=== PATIENT | male | born 1995 | race African-American/Black ===

== ENCOUNTER 2018-08-06 13:16 | Emergency (ER) | payer MEDICARE ==
[~2018-08-06] VITALS: Ht 182.9 cm; Wt 100.2 kg
[2018-08-06 13:48] VITALS: BP 136/60
[2018-08-06] MEDS: HYDROcodone/APAP 5/325MG 1 TAB TABLET PO ONE (14:10)
[2018-08-06] MEDS ORDERED: HYDR-971 PO (14:12)
[2018-08-06] MEDS ORDERED: PENI500T PO (14:12)
--- NOTE | 2018-08-06 14:12 | PHYS DOC ---
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 Past Surgical History: Other Additional Past Surgical Histo: eye Alcohol Use: None Drug Use: None Adult General Chief Complaint Chief Complaint: OTHER COMPLAINTS [facility] HPI Patient is a 23 year old male who presents with right upper back molar tooth pain times over 2 months. Patient states that he was at [facility] and they put him on amoxicillin for the last 2 months and told him to keep taking it until the pain was gone. Patient states that he was given 10 oxycodone to take and he took it last 2 days ago but has no more. Patient rates pain a 7 out of 10. Patient states the tooth doesn't hurt as much anymore unless he eats but now on the roof on the mouth to the side of the infected tooth is a raised tender not. Patient states that that not has been there for the last week. Patient states that it hurts especially when he eats. Patient denies any current headaches, nausea, vomiting, chills, fever. Patient states that he has a dentist appointment for a tooth removal on August 24. She states he has no known drug allergies, does not smoke, takes no drugs, does not drink. Patient has history of asthma and seizures which he takes no medications for daily. Review of Systems Review of Systems Constitutional: Denies fever or chills [] Eyes: Denies change in visual acuity, redness, or eye pain [] HENT: Denies nasal congestion or sore throat. Right upper back molar pain x 2 months. Roof of mouth lump adjacent to effected tooth that is tender x 1 week. [ ] Respiratory: Denies cough or shortness of breath [] Cardiovascular: No additional information not addressed in HPI [] GI: Denies abdominal pain, nausea, vomiting, bloody stools or diarrhea [] : Denies dysuria or hematuria [] Musculoskeletal: Denies back pain or joint pain [] Integument: Denies rash or skin lesions. [] Neurologic: Denies headache, focal weakness or sensory changes [] Endocrine: Denies polyuria or polydipsia [] All other systems were reviewed and found to be within normal limits, except as documented in this note. Current Medications Current Medications Current Medications Medications (Trade) Dose Ordered Sig/Addie Start Time Stop Time Status Last Admin Dose Admin Acetaminophen/ Hydrocodone Bitart (Lortab 5/325) 1 tab 1X ONCE 08/06/18 14:00 08/06/18 14:01 DC 08/06/18 14:10 1 TAB Bupivacaine HCl/ Epinephrine Bitart (Sensorcain-Mpf Epi 0.5%-[id number]) 30 ml 1X ONCE 08/06/18 14:30 08/06/18 14:34 DC 08/06/18 15:50 30 ML Clindamycin HCl (Cleocin) 450 mg 1X ONCE 08/06/18 14:30 08/06/18 14:31 DC 08/06/18 14:36 450 MG Dexamethasone (Decadron) 8 mg 1X ONCE 08/06/18 14:30 08/06/18 14:31 DC 08/06/18 14:36 8 MG Allergies Allergies Allergies Coded Allergies Type Severity Reaction Last Updated Verified No Known Drug Allergies 03/15/14 No Physical Exam Physical Exam Constitutional: Well developed, well nourished, no acute distress, non-toxic appearance. [] HENT: Normocephalic, atraumatic, bilateral external ears normal, oropharynx moist, no oral exudates, nose normal.Right upper back molar dental caries. Roof of mouth lump adjacent to effected tooth that is tender, pink, and nondraining. Eyes: PERRLA, EOMI, conjunctiva normal, no discharge. [] Neck: Normal range of motion, no tenderness, supple, no stridor. [] Cardiovascular:Heart rate regular rhythm, no murmur [] Lungs & Thorax: Bilateral breath sounds clear to auscultation [] Abdomen: Bowel sounds normal, soft, no tenderness, no masses, no pulsatile masses. [] Skin: Warm, dry, no erythema, no rash. [] Back: No tenderness, no CVA tenderness. [] Extremities: No tenderness, no cyanosis, no clubbing, ROM intact, no edema. [] Neurologic: Alert and oriented X 3, normal motor function, normal sensory function, no focal deficits noted. [] Psychologic: Affect normal, judgement normal, mood normal. [] PE by Dr. Bailey: Constitutional: no acute distress, non-toxic appearance. [] HENT: Right maxillary 1st molar significant dental josefina noted. Nondraining hard palate fluctuance noted which is tender to palpation. Concern for abscess. Current Patient Data Vital Signs Vital Signs Date Time Temp Pulse Resp B/P (MAP) Pulse Ox O2 Delivery O2 Flow Rate FiO2 08/06/18 14:10 18 97 08/06/18 13:48 97.9 82 136/60 (85) Room Air 97.9 EKG EKG [] Radiology/Procedures Radiology/Procedures [] Course & Med Decision Making Course & Med Decision Making Patient is a 23 year old male who presents with right upper back molar tooth pain times over 2 months. Patient states that he was at and they put him on amoxicillin for the last 2 months and told him to keep taking it until the pain was gone. Patient states that he was given 10 oxycodone to take and he took it last 2 days ago but has no more. Patient rates pain a 7 out of 10. Patient states the tooth doesn't hurt as much anymore unless he eats but now on the roof on the mouth to the side of the infected tooth is a raised tender not. Patient states that that not has been there for the last week. Patient states that it hurts especially when he eats. Patient denies any current headaches, nausea, vomiting, chills, fever. Patient states that he has a dentist appointment for a tooth removal on August 24. Patient states he has no known drug allergies, does not smoke, takes no drugs, does not drink. Patient has history of asthma and seizures which he takes no medications for daily. Patient' s lungs are clear to auscultation. Patient's heart rate is regular and without murmur. Patient is alert and oriented. Patient is ambulatory. Patient has no visual abnormalities, numbness, tingling. Patient denies any sinus congestion or recent illness. Examination patient does have a raised lump adjacent to the infected tooth. It is not draining. It is pink in the same color as the rest of the mucous membrane on the roof his mouth. Patient is afebrile. Patient states it is tender when I palpated. It is soft. I will write for some pain medicine for the patient and his antibiotic to Clindamycin. Patient will have to stop taking the amoxicillin that he had been on for the last 2 months. I have consulted with Dr. Bailey. Patient received a dental block with Bupivacaine with epi by Dr Bailey. Patient tolerated well. The abscessed area was numbed by Dr Bailey and the abscess was then manipulated but did not drain any fluid with needle stick puncture. The patient is given a dose of Clindamycin and [place] in the ED. Patient to keep his dental appointment and to call to see if he can get in sooner. [] Dragon Disclaimer Dragon Disclaimer This electronic medical record was generated, in whole or in part, using a voice recognition dictation system. Departure Departure Impression: Primary Impression: Dental abscess Disposition: HOME, SELF-CARE Condition: STABLE Referrals: NO PCP (PCP) Patient Instructions: Dental Abscess Additional Instructions: Keep current dental appointment. Stop taking Amoxicillin and begin Penicillin. Take Ibuprofen and pain medication as prescribed. Scripts Chlorhexidine Gluconate (PERIDEX) 15 Ml Mouthwash 15 ML PO BID for 10 Days, #946 ML Prov: CARLOS MCMULLEN APRN 08/06/18 Clindamycin Hcl (CLINDAMYCIN HCL) 300 Mg Capsule 450 MG PO TID for 10 Days, #45 CAP Prov: CARLOS MCMULLEN APRN 08/06/18 Hydrocodone/Apap 5-325 (NORCO 5-325 TABLET) 1 Each Tablet 1 TAB PO PRN Q6HRS PRN for PAIN, #8 TAB 0 Refills Prov: CARLOS MCMULLEN APRN 08/06/18 Additional Procedures Progress Dental Block and Needle Aspiration of dental abscess: Time out completed. Verbal consent obtained. Hand hygiene utilized. [place] Alveolar block performed with 4ml of Bupivicaine 0.5% with epi via 25g hypodermic needle. Interval improvement of pain. Needle decompression with 25 gauge hypodermic needle also performed to fluctuant area to hard palate near infected tooth. Serosanginous discharge appreciated. Patient tolerated procedure well and without difficulty. Attending Signature Attending Signature I have personally interviewed and examined the patient. All charts, labs, and imaging studies were reviewed. I agree with the PA/INTERNET MERCHANT's findings, exam, and plan. CARLOS MCMULLEN APRN Aug 06, 2018 14:12 VINCE BAILEY DO Aug 08, 2018 12:20
[2018-08-06] MEDS ORDERED: CHLO15MO2 PO (14:30)
[2018-08-06] MEDS ORDERED: CLIN300C8 PO (14:30)
[2018-08-06] MEDS: CLINDAMYCIN HCL 150 MG CAPSULE. PO ONE (14:36)
[2018-08-06] MEDS: DEXAMETHASONE 4 MG TABLET PO ONE (14:36)
[2018-08-06] MEDS: BUPIVAC MPF-EPI 0.5%-1:200000 30 ML VIAL. INJ ONE (15:50)
== END 2018-08-06 16:30 | disposition home or self-care (01) ==
LOC: ER 13:16
DX: K04.7 Periapical abscess without sinus (principal); J45.909 Unspecified asthma, uncomplicated
CPT/HCPCS: 64400; 99284; J3490; J8540

== ENCOUNTER 2018-11-20 14:09 | Emergency (ER) | payer MEDICARE, MEDICAID ==
[~2018-11-20] VITALS: Ht 182.9 cm; Wt 100.2 kg
[~2018-11-20 14:09] MED LIST: CHLO15MO2 PO; CLIN300C8 PO; HYDR-3164 PO; PENI500T PO
[2018-11-20 14:10] VITALS: BP 134/61
[2018-11-20] MEDS ORDERED: KETOROLAC 60 MG/2 ML VIAL. IM ONE (14:30)
[2018-11-20] MEDS ORDERED: CYCLOBENZAPRINE 10 MG TABLET. PO ONE (14:30)
[2018-11-20] MEDS ORDERED: CYCL5TAB PO (14:44)
[2018-11-20] MEDS ORDERED: IBUP-1060 PO (14:44)
--- NOTE | 2018-11-20 14:45 | PHYS DOC ---
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 Past Surgical History: Other Additional Past Surgical Histo: eye Alcohol Use: None Drug Use: None Adult General Chief Complaint Chief Complaint: BACK PAIN OR INJURY HPI HPI Patient is a 23 year old AA male who presents to the ER with complaints of left mid and right lower back pain for the last month. Pt denies any recent injury or illness. States that he is on his feet a lot at work. He has been taking OTC pain relievers with no reduction in symptoms. Pt denies any saddle anesthesia, numbness/tingling/weakness of lower extremities, or loss of bowel/ bladder control. Currently, his pain is a 10/10 on the pain scale. Pt also requesting a work excuse Review of Systems Review of Systems Constitutional: Denies fever or chills [] Eyes: Denies change in visual acuity, redness, or eye pain [] ENT: Denies nasal congestion or sore throat [] Respiratory: Denies cough or shortness of breath [] Cardiovascular: No additional information not addressed in HPI [] GI: Denies abdominal pain, nausea, vomiting, or diarrhea [] : Denies dysuria or hematuria [] Musculoskeletal: See HPI Integument: Denies rash or skin lesions [] Neurologic: Denies headache, focal weakness or sensory changes [] All other systems were reviewed and found to be within normal limits, except as documented in this note. Current Medications Current Medications Current Medications Medications (Trade) Dose Ordered Sig/[facility] Start Time Stop Time Status Last Admin Dose Admin Cyclobenzaprine HCl (Flexeril) 10 mg 1X ONCE 11/20/18 14:30 11/20/18 14:31 DC 11/20/18 14:33 10 MG Ketorolac Tromethamine (Toradol Im) 30 mg 1X ONCE 11/20/18 14:30 11/20/18 14:31 DC 11/20/18 14:33 30 MG Allergies Allergies Allergies Coded Allergies Type Severity Reaction Last Updated Verified No Known Drug Allergies 11/20/18 No Physical Exam Physical Exam Constitutional: Well developed, well nourished, no acute distress, non-toxic appearance, obese. [] HENT: Normocephalic, atraumatic, bilateral external ears normal, oropharynx moist, no oral exudates, nose normal. [] Eyes: conjunctiva normal, no discharge. [] Skin: Warm, dry, no erythema, no rash. [] Back: No bony tenderness, no CVA tenderness; right lumbar paraspinal tenderness to palpation, left thoracic paraspinal tenderness to palpation. Extremities: No cyanosis, no clubbing, ROM intact, no edema. [] Neurologic: Alert and oriented X 3, normal motor function, normal sensory function, no focal deficits noted. [] Psychologic: Affect normal, judgement normal, mood normal. [] Current Patient Data Vital Signs Vital Signs Date Time Temp Pulse Resp B/P (MAP) Pulse Ox O2 Delivery O2 Flow Rate FiO2 11/20/18 14:10 97.5 87 18 134/61 (85) 96 Room Air 97.5 EKG EKG [] Radiology/Procedures Radiology/Procedures [] Course & Med Decision Making Course & Med Decision Making Pertinent Labs and Imaging studies reviewed. (See chart for details) [] Dragon Disclaimer Dragon Disclaimer This electronic medical record was generated, in whole or in part, using a voice recognition dictation system. Departure Departure Impression: Primary Impression: Lumbar strain Additional Impression: Strain of thoracic region Disposition: HOME, SELF-CARE Condition: STABLE Referrals: NO PCP (PCP) Patient Instructions: Back Pain, Adult, [id number] Additional Instructions: Fill prescriptions and use as directed. Follow up with your primary care doctor if symptoms persist, return to the ER if symptoms worsen. Scripts Cyclobenzaprine Hcl (CYCLOBENZAPRINE HCL) 5 Mg Tablet 5 MG PO PRN TID PRN for muscle spasm, #15 TAB Prov: ARMEN SUBRAMANIAN DO 11/20/18 Ibuprofen (IBUPROFEN) 800 Mg Tablet 800 MG PO PRN TID PRN for PAIN, #30 TAB take with food or milk to avoid upsetting stomach Prov: ARMEN SUBRAMANIAN DO 11/20/18 Problem Qualifiers Primary Impression: Lumbar strain Encounter type: initial encounter Qualified Codes: S39.012A - Strain of muscle, fascia and tendon of lower back, initial encounter Additional Impression: Strain of thoracic region Encounter type: initial encounter Qualified Codes: S29.019A - Strain of muscle and tendon of unspecified wall of thorax, initial encounter PHIL ZEE APRN Nov 20, 2018 14:45
== END 2018-11-20 14:47 | disposition home or self-care (01) ==
LOC: ER 14:09
DX: S39.012A Strain of muscle, fascia and tendon of lower back, initial encounter (principal); S29.019A Strain of muscle and tendon of unspecified wall of thorax, initial encounter; J45.909 Unspecified asthma, uncomplicated; X50.1XXA Overexertion from prolonged static or awkward postures, initial encounter; Y93.89 Activity, other specified; Y92.69 Other specified industrial and construction area as the place of occurrence of the external cause; Y99.0 Civilian activity done for income or pay
CPT/HCPCS: 96372; 99283; J1885

== ENCOUNTER 2019-01-05 14:59 | Emergency (ER) | payer MEDICARE ==
[~2019-01-05] VITALS: Ht 182.9 cm; Wt 108.4 kg
[~2019-01-05 14:59] MED LIST changes: +CYCL5TAB PO; +IBUP-1060 PO
[2019-01-05 15:29] VITALS: BP 151/70
[2019-01-05] MEDS ORDERED: AMOXICILLIN 250 MG CAPSULE. PO ONE (15:30)
[2019-01-05] MEDS ORDERED: DEXAMETHASONE SOD PHOS 20 MG/5 ML VIAL. IM ONE (15:30)
--- NOTE | 2019-01-05 15:47 | PHYS DOC ---
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 Past Surgical History: Other Additional Past Surgical Histo: eye Alcohol Use: None Drug Use: None Adult General Chief Complaint Chief Complaint: SORE THROAT HPI HPI Patient is a 23 year old male with history of asthma, seizures, who presents to the ED complaining of some throat swelling and soreness that began this morning. Patient denies any fever, coughing, congestion. Review of Systems Review of Systems Constitutional: Denies fever or chills [] Eyes: Denies change in visual acuity, redness, or eye pain [] HENT: Reports sore throat and throat swelling. Denies nasal congestion Respiratory: Denies cough or shortness of breath [] Cardiovascular: No additional information not addressed in HPI [] GI: Denies abdominal pain, nausea, vomiting, bloody stools or diarrhea [] : Denies dysuria or hematuria [] Musculoskeletal: Denies back pain or joint pain [] Integument: Denies rash or skin lesions [] Neurologic: Denies headache, focal weakness or sensory changes [] All other systems were reviewed and found to be within normal limits, except as documented in this note. Current Medications Current Medications Current Medications Medications (Trade) Dose Ordered Sig/Addie Start Time Stop Time Status Last Admin Dose Admin Amoxicillin (Amoxil) 1,000 mg 1X ONCE 01/05/19 15:30 01/05/19 15:31 DC 01/05/19 15:51 1,000 MG Dexamethasone Sodium Phosphate (Decadron) 10 mg 1X ONCE 01/05/19 15:30 01/05/19 15:31 DC 01/05/19 15:51 10 MG Allergies Allergies Allergies Coded Allergies Type Severity Reaction Last Updated Verified No Known Drug Allergies 11/20/18 No Physical Exam Physical Exam Constitutional: Well developed, well nourished, no acute distress, non-toxic appearance. [] HENT: Normocephalic, atraumatic, bilateral external ears normal, oropharynx moist, no oral exudates, nose normal. [] Airway is open, no uvular has mild swelling, mild erythema to posterior pharynx no exudate Eyes: PERRLA, EOMI, conjunctiva normal, no discharge. [] Neck: Normal range of motion, no tenderness, supple, no stridor. [] Cardiovascular:Heart rate regular rhythm, no murmur [] Lungs & Thorax: Bilateral breath sounds clear to auscultation [] Abdomen: Bowel sounds normal, soft, no tenderness, no masses, no pulsatile masses. [] Skin: Warm, dry, no erythema, no rash. [] Back: No tenderness, no CVA tenderness. [] Extremities: No tenderness, no cyanosis, no clubbing, ROM intact, no edema. [] Neurologic: Alert and oriented X 3, normal motor function, normal sensory function, no focal deficits noted. [] Psychologic: Affect normal, judgement normal, mood normal. [] Current Patient Data Vital Signs Vital Signs Date Time Temp Pulse Resp B/P (MAP) Pulse Ox O2 Delivery O2 Flow Rate FiO2 01/05/19 15:29 97.7 75 18 151/70 (97) 97 Room Air 97.7 EKG EKG [] Radiology/Procedures Radiology/Procedures [] Course & Med Decision Making Course & Med Decision Making Pertinent Labs and Imaging studies reviewed. (See chart for details) This is a 23-year-old male patient who presented to the ED today complaining of sore throat and throat swelling, on physical exam his uvular was mildly swollen , airway still open, there is erythema to pharynx. Patient was given Solu- Medrol injection in the ED. Given amoxicillin in the ED. Discharged with amoxicillin for 10 days. Saltwater gargles recommended. Prescription for prednisone for 5 more days also provided. Follow-up with PCP or ENT in one to 2 weeks. Instructed to return to the ED at any point symptoms worsen. Dragon Disclaimer Dragon Disclaimer This electronic medical record was generated, in whole or in part, using a voice recognition dictation system. Departure Departure Impression: Primary Impression: Acute pharyngitis Disposition: HOME, SELF-CARE Condition: STABLE Referrals: NO PCP (PCP) follow up with your doctor in one week Patient Instructions: Viral and Bacterial Pharyngitis Additional Instructions: You have throat infection. We put you on antibiotics and prednisone. Please complete them. Follow-up with your doctor in 1-2 weeks. Take Tylenol or Motrin as needed for pain. Come back to the ED at any point symptoms worsen. Scripts Amoxicillin (AMOXICILLIN) 875 Mg Tablet 1 TAB PO BID, #20 TAB Prov: DIONISIO WESLEY HALFWAY HOUSE COUNSELOR 01/05/19 Prednisone (PREDNISONE) 50 Mg Tablet 1 TAB PO DAILY, #5 TAB Prov: DIONISIO WESLEY [employer] HOU[employer] COUNSELOR 01/05/19 Problem Qualifiers Primary Impression: Acute pharyngitis Pharyngitis/tonsillitis etiology: unspecified etiology Qualified Codes: J02.9 - Acute pharyngitis, unspecified DIONISIO WESLEY APRN Jan 05, 2019 15:47
[2019-01-05] MEDS ORDERED: AMOX875T PO (16:27)
[2019-01-05] MEDS ORDERED: PRED50TA PO (16:27)
== END 2019-01-05 16:33 | disposition home or self-care (01) ==
LOC: ER 14:59
DX: J02.9 Acute pharyngitis, unspecified (principal); J45.909 Unspecified asthma, uncomplicated
CPT/HCPCS: 96372; 99283; J1100

== ENCOUNTER 2019-02-27 13:54 | Emergency (ER) | payer MEDICARE ==
[~2019-02-27] VITALS: Ht 182.9 cm; Wt 108.9 kg
[~2019-02-27 13:54] MED LIST changes: +AMOX875T PO; +PRED50TA PO
[2019-02-27] MEDS ORDERED: HYDROcodone/APAP 5/325MG 1 TAB TABLET PO ONE (14:30)
[2019-02-27] MEDS ORDERED: predniSONE 10 MG TABLET PO ONE (14:30)
[2019-02-27] MEDS ORDERED: METH-38 PO (15:14)
[2019-02-27] MEDS ORDERED: PRED50TA PO (15:14)
--- NOTE | 2019-02-27 15:15 | PHYS DOC ---
Past Medical History Past Medical History: Asthma, Seizure, Other Additional Past Medical Histor: Chronic lumbar back pain Past Surgical History: Other Additional Past Surgical Histo: Eye surgery Alcohol Use: None Drug Use: None Adult General Chief Complaint Chief Complaint: BACK PAIN - NO INJURY HPI HPI 24-year-old male presents to ER via POV for complaints of chronic diffuse mid to lower back pain- reports increase in pain over past few days. Patient denies any recent injury or falls. Pt denies any incontinence of bowel or bladder, saddle anesthesia, or numbness and tingling. Pt denies fever/urinary sxs. He denies inability to ambulate. Review of Systems Review of Systems Constitutional: Denies fever or chills [] Respiratory: Denies cough or shortness of breath [] Cardiovascular: No additional information not addressed in HPI [] GI: Denies abdominal pain, nausea, vomiting, bloody stools or diarrhea [] : Denies dysuria or hematuria [] Musculoskeletal: Denies joint pain. Reports mid to lower back pain- denies radiation into extremities or into sides/abd Integument: Denies rash, swelling, or skin lesions [] Neurologic: Denies headache, focal weakness or sensory changes. Denies dizziness All other systems were reviewed and found to be within normal limits, except as documented in this note. Current Medications Current Medications Current Medications Medications (Trade) Dose Ordered Sig/Addie Start Time Stop Time Status Last Admin Dose Admin Acetaminophen/ Hydrocodone Bitart (Lortab 5/325) 1 tab 1X ONCE 02/27/19 14:30 02/27/19 14:34 DC 02/27/19 14:41 1 TAB Prednisone (Prednisone) 50 mg 1X ONCE 02/27/19 14:30 02/27/19 14:34 DC 02/27/19 14:41 50 MG Allergies Allergies Allergies Coded Allergies Type Severity Reaction Last Updated Verified No Known Drug Allergies 11/20/18 No Physical Exam Physical Exam Constitutional: Well developed, well nourished, no acute distress, non-toxic appearance. [] HENT: Normocephalic, atraumatic, oropharynx moist, nose normal. [] Eyes: Pupils equal, conjunctiva normal, no discharge. [] Neck: Normal range of motion, no tenderness, supple, no stridor. [] Cardiovascular: Heart rate regular rhythm, no murmur [] Lungs & Thorax: Bilateral breath sounds clear to auscultation. Resp. equal/nonlabored Skin: Warm, dry, no erythema, no rash. [] Back: Diffuse tenderness mid to lower back without focal area- no swelling/palp. deformity. No CVA tenderness. [] Extremities: No tenderness, no cyanosis, no clubbing, ROM intact, no edema. 2+ bilat.dorsalis pedis/posterior tibial bilat. Neurologic: Alert and oriented X 3, normal motor function, normal sensory function, no focal deficits noted. [] Psychologic: Affect normal, judgement normal, mood normal. [] Current Patient Data Vital Signs Vital Signs Date Time Temp Pulse Resp B/P (MAP) Pulse Ox O2 Delivery O2 Flow Rate FiO2 02/27/19 15:22 73 18 119/55 (76) 96 Room Air 02/27/19 14:12 97.9 97.9 EKG EKG [] Radiology/Procedures Radiology/Procedures [] Course & Med Decision Making Course & Med Decision Making 1505: Pt was evaluated in the ER for complaints of ongoing chronic back pain which is been ongoing for several months- reporting pain increasing over past few days. He denied any new injury or falls. Discussed obtaining xrays for pt's tenderness along mid thoracic to lumbar- although no palp. deformity/recent injuries. Pt after discussion on imaging preferred no xrays and to just receive tx. No imaging was done as patient reported pain similar to previous exacerbations of back pain- he was treated with dose of [place] and prednisone while in the ER and at this time reports he has had some improvement in discomfort. He remains PMS intact in extremities with steady unassisted gait in room. Education provided on need to establish PCP for ongoing chronic pain tx. Will provide community clinic resource sheet. Will provide pt with Rx for prednisone and pt advised on use of ice/heat compress and OTC meds for tx. Education provided on s&s to return to ER for and d/c instructions were discussed. Angel Disclaimer Angel Disclaimer This electronic medical record was generated, in whole or in part, using a voice recognition dictation system. Departure Departure Impression: Primary Impression: Chronic back pain Disposition: HOME, SELF-CARE Condition: STABLE Referrals: NO PCP (PCP) Patient Instructions: Chronic Back Pain Additional Instructions: As discussed you need to establish a primary care physician or pain management for further evaluation and care for your chronic ongoing back pain. Ice and heat compress to affected area every 3-4 hours for 20-30 minutes at a time avoiding direct ice contact with skin. Tylenol and/or ibuprofen as directed on container as needed for pain. Scripts Prednisone (PREDNISONE) 50 Mg Tablet 1 TAB PO DAILY, #4 TAB 0 Refills Start on 02/28/19 Prov: LAYLA CLAYTON APRN 02/27/19 Methocarbamol (ROBAXIN-750) 750 Mg Tablet 1 TAB PO BID PRN for PAIN, #10 TAB 0 Refills Prov: LAYLA CLAYTON APRN 02/27/19 LAYLA CLAYTON APRN Feb 27, 2019 15:15
[2019-02-27 15:22] VITALS: BP 119/55
== END 2019-02-27 15:35 | disposition home or self-care (01) ==
LOC: ER 13:54
DX: G89.29 Other chronic pain (principal); M54.5 Low back pain; M54.6 Pain in thoracic spine; J45.909 Unspecified asthma, uncomplicated
CPT/HCPCS: 99283; J7512